=== PATIENT | male | born 2000 | race Two or more races ===

== ENCOUNTER 2020-05-29 16:58 | Emergency (ER) | payer OTHER ==
[~2020-05-29] VITALS: Ht 175.3 cm; Wt 111.1 kg
[2020-05-29 17:10] VITALS: BP 137/85
== END 2020-05-29 19:39 | disposition home or self-care (01) ==
LOC: ER 16:58 → EDBD 16:58 → ER 19:39
DX: S50.01XA Contusion of right elbow, initial encounter (principal); V49.9XXA Car occupant (driver) (passenger) injured in unspecified traffic accident, initial encounter; Y93.89 Activity, other specified; Y92.89 Other specified places as the place of occurrence of the external cause; Y99.8 Other external cause status
CPT/HCPCS: 73080